=== PATIENT | male | born 1985 | race Two or more races ===

== ENCOUNTER 2016-05-15 10:35 | Emergency (ER) | payer SELFPAY ==
[~2016-05-15] VITALS: Ht 167.6 cm; Wt 77.1 kg
[2016-05-15 10:40] VITALS: BP 126/76
[2016-05-15] MEDS ORDERED: NAPROXEN 500 MG TABLET PO ONE (11:30)
[2016-05-15 11:40] LABS: OBC FLU VALID
--- NOTE | 2016-05-15 11:40 | PHYS DOC ---
Past Medical History Past Medical History: No Pertinent History Past Surgical History: No Surgical History Alcohol Use: None Drug Use: None Adult General Chief Complaint Chief Complaint: FEVER HPI HPI Patient is a 30 year old male who presents with fever. Patient reports for the past 15 days he has been having fever, chills, cough, [place], sore throat, body aches. He has taken Tylenol and ibuprofen at home with insufficient relief ( although only takes 1 tab of either at a time). His son has been sick with similar symptoms. No other acute complaints. Review of Systems Review of Systems Constitutional: Chills Eyes: Denies change in visual acuity or eye pain HENT: Sore throat Respiratory: Cough. Denies shortness of breath Cardiovascular: Denies chest pain GI: Denies abdominal pain, nausea, vomiting, bloody stools or diarrhea : Denies dysuria or hematuria Musculoskeletal: Body aches Integument: Denies rash or skin lesions Neurologic: Headache. Denies focal weakness or sensory changes Current Medications Current Medications Current Medications Medications (Trade) Dose Ordered Sig/Alisa Start Time Stop Time Status Last Admin Dose Admin Naproxen (Naprosyn) 500 mg 1X ONCE 05/15/16 11:30 05/15/16 11:31 DC 05/15/16 11:51 500 MG Allergies Allergies Allergies Coded Allergies Type Severity Reaction Last Updated Verified No Known Drug Allergies 05/15/16 No Physical Exam Physical Exam Constitutional: Well developed, well nourished, no acute distress, non-toxic appearance HENT: Normocephalic, atraumatic, bilateral external ears normal. Oropharynx erythematous without exudate Eyes: EOMI, conjunctiva normal, no discharge Neck: Normal range of motion, no stridor Cardiovascular: Heart rate normal, regular rhythm, no murmur Lungs & Thorax: Bilateral breath sounds clear to auscultation Abdomen: Bowel sounds normal, soft, non-distended, no TTP Skin: Warm, dry, no erythema, no rash Extremities: No obvious deformity, no edema Neurologic: Alert and oriented X 3, no gross deficits noted Current Patient Data Vital Signs Vital Signs Date Time Temp Pulse Resp B/P Pulse Ox O2 Delivery O2 Flow Rate FiO2 05/15/16 10:40 98.7 88 16 126/76 97 Room Air 98.7 Lab Values Laboratory Tests Test 05/15/16 10:47 Influenza Type A Antigen Negative (NEGATIVE) Influenza Type B Antigen Positive (NEGATIVE) EKG EKG [] Radiology/Procedures Radiology/Procedures CXR: IMPRESSION: No acute or focal process seen in the chest Course & Med Decision Making Course & Med Decision Making Pertinent Labs and Imaging studies reviewed. (See chart for details) Patient is 30-year-old male who presents with fever, cough, sore throat, body aches. Likely viral respiratory infection. Will obtain chest x-ray and flu swab. Dose of naproxen ordered for relief of symptoms. Imaging results as above. Patient positive for influenza. Given duration of symptoms, Tamiflu not indicated. Discussed results with patient. Will discharge home with instructions for symptomatic treatment, prescription for naproxen, instructions for follow-up, return precautions. Dragon Disclaimer Dragon Disclaimer This electronic medical record was generated, in whole or in part, using a voice recognition dictation system. Departure Departure Impression: Primary Impression: Influenza B Disposition: HOME, SELF-CARE Condition: STABLE Patient Instructions: Influenza, Adult Additional Instructions: Thank you for allowing us to provide care today in the Emergency Department. Take the provided medication as directed. It is also important to drink plenty of fluids. Schedule a follow up appointment with your primary care doctor. Return promptly to the Emergency Department if you develop any new or concerning symptoms. Scripts Naproxen 375 Mg [id number] Mg PO BID PRN fever, body aches #20 Prov:KEDAR FREIRE MD 05/15/16 KEDAR FREIRE MD May 15, 2016 11:40
[2016-05-15] MEDS ORDERED: NAPR375T3 PO (11:56)
--- NOTE | 2016-05-15 12:04 | RAD ---
Indication cough and fever for 2 weeks. PA and lateral views of the chest were obtained. No prior imaging of the chest is available. The heart, pulmonary vessels and mediastinum appear normal. The lungs are clear. There is no pleural fluid or pneumothorax. The visualized bony structures appear grossly intact. IMPRESSION: No acute or focal process seen in the chest
== END 2016-05-15 12:25 | disposition home or self-care (01) ==
LOC: ER 10:35
DX: J10.1 Influenza due to other identified influenza virus with other respiratory manifestations (principal)
CPT/HCPCS: 71020; 87804; 99285-25